=== PATIENT | male | born 1980 | race African-American/Black ===

== ENCOUNTER 2017-03-25 10:59 | Emergency (ER) | payer SELFPAY ==
[2017-03-25] MEDS ORDERED: Acetaminophen 325 MG TAB ONE (12:07)
[2017-03-25 12:23] LABS: #Basophils 0.1 thou/uL (0.0-0.2); #Lymphocytes 1.2 thou/uL (1.20-3.40); #Monocytes 1.1 thou/uL (0.11-0.59); #Neutrophils 9.6 thou/uL (1.40-6.50); %Basophils 0.8 % (0.0-1.0); %Lymphocytes 9.9 % (21.0-51.0); %Monocytes 8.8 % (0.0-10.0); Hematocrit 44.5 % (42.0-52.0); Mean Platelet Volume 8.9 fL (7.4-10.4); Red Blood Cell (RBC) Count 4.94 mill/uL (4.70-6.10)
--- NOTE | 2017-03-25 12:46 | RAD ---
2 VIEW CHEST: Date: 03/25/17 HISTORY: Cough. Sore throat. COMPARISON: 02/24/12. FINDINGS: The lung londono are clear. No infiltrate seen. Heart and mediastinum unremarkable. IMPRESSION: No acute findings. POS: [facility]
== END 2017-03-25 14:43 | disposition home or self-care (01) ==
LOC: SCSER 10:59
DX: J20.9 Acute bronchitis, unspecified (principal); F17.210 Nicotine dependence, cigarettes, uncomplicated
CPT/HCPCS: 36415; 71020; 85025

== ENCOUNTER 2017-10-23 22:48 | Emergency (ER) | payer SELFPAY | END 2017-10-24 00:09 | disposition home or self-care (01) | LOC: SCSER 22:48 | DX: A60.01 Herpesviral infection of penis (principal); Z71.6 Tobacco abuse counseling; F17.200 Nicotine dependence, unspecified, uncomplicated | CPT/HCPCS: 99406 ==

== ENCOUNTER 2018-07-11 08:25 | Emergency (ER) | payer SELFPAY ==
[2018-07-11] MEDS ORDERED: Fluorescein Opthalmic Strip ONE (08:35)
[2018-07-11] MEDS ORDERED: Adacel (T-DAP) 0.5 ML SYRINGE ONE (08:45)
== END 2018-07-11 09:03 | disposition home or self-care (01) ==
LOC: SCSER 08:25
DX: S05.02XA Injury of conjunctiva and corneal abrasion without foreign body, left eye, initial encounter (principal); W22.09XA Striking against other stationary object, initial encounter
CPT/HCPCS: 90471; 90715

== ENCOUNTER 2021-12-25 01:32 | Emergency (ER) | payer OTHER, SELFPAY ==
[2021-12-25] MEDS ORDERED: Morphine 4 MG/ML VIAL ONE (02:05)
[2021-12-25] MEDS ORDERED: Ondansetron PF 4 MG/2 ML Vial ONE (02:06)
[2021-12-25] MEDS ORDERED: Bacitracin 1 PK ONE (02:06)
[2021-12-25] MEDS ORDERED: Ketorolac Tromethamine 30 MG/ML VIAL ONE (02:06)
[2021-12-25] MEDS ORDERED: Lidocaine 1% MPF 2 ML VIAL ONE (02:38)
== END 2021-12-25 06:30 | disposition home or self-care (01) ==
LOC: ERS 01:32
DX: S02.2XXA Fracture of nasal bones, initial encounter for closed fracture (principal); S01.81XA Laceration without foreign body of other part of head, initial encounter; S50.02XA Contusion of left elbow, initial encounter; S05.12XA Contusion of eyeball and orbital tissues, left eye, initial encounter; S70.12XA Contusion of left thigh, initial encounter; S46.992A Other injury of unspecified muscle, fascia and tendon at shoulder and upper arm level, left arm, initial encounter; S80.812A Abrasion, left lower leg, initial encounter; V27.4XXA Motorcycle driver injured in collision with fixed or stationary object in traffic accident, initial encounter
CPT/HCPCS: 12011; 29105; 70450; 70486; 71045; 96374; 96375; J1885; J2270; J2405

== ENCOUNTER 2022-03-03 20:44 | Emergency (ER) | payer SELFPAY ==
[2022-03-04 00:34] LABS: #Eosinphils 0.1 thou/uL (0.0-0.7); #Lymphocytes 1.5 thou/uL (1.20-3.40); #Monocytes 0.8 thou/uL (0.11-0.59); #Neutrophils 6.6 thou/uL (1.40-6.50); %Basophils 0.3 % (0.0-1.0); %Eosinophils 0.6 % (0.0-10.0); %Lymphocytes 16.3 % (21.0-51.0); %Neutrophils 73.8 % (42.0-75.0); Hemoglobin 15.1 g/dL (14.0-18.0); Mean Corpuscular HGB CONC 32.2 g/dL (32.0-36.0); Mean Corpuscular Hemoglobin 29.7 pg (27.0-31.0); Mean Corpuscular Volume 92.2 fL (78.0-98.0); Mean Platelet Volume 9.3 fL (7.4-10.4); Platelet Count 184 thou/uL (130-400); RBC Distribution Width 11.5 % (11.5-14.5); Red Blood Cell (RBC) Count 5.07 mill/uL (4.70-6.10)
[2022-03-04 00:59] LABS: ALT (SGPT) 15 U/L (8-55); AST (SGOT) 15 U/L (5-34); Albumin 4.4 g/dL (3.5-5.0); Alkaline Phosphatase 58 U/L (40-110); Anion Gap 13 mmol/L (10-20); BUN (Urea Nitrogen) 13 mg/dL (8.9-20.6); Bilirubin, Total 0.5 mg/dL (0.2-1.2); Calc. Creatinine Clearance 0 mL/min (70-130); Calcium 9.5 mg/dL (7.8-10.44); Carbon Dioxide 25 mmol/L (22-29); Chloride 103 mmol/L (98-107); Estimated GFR 86; Globulin 3.6 g/dL (2.4-3.5); Glucose 119 mg/dL (70-105); Potassium 4.3 mmol/L (3.5-5.1); Sodium 137 mmol/L (136-145)
[2022-03-04] MEDS ORDERED: Clindamycin/D5W 600 mg/50 ml Premix Bag ONE (02:00)
[2022-03-04] MEDS ORDERED: Lidocaine 1% PF 5 ML VIAL ONE (02:01)
[2022-03-04] MEDS ORDERED: Bacitracin 1 PK ONE (02:31)
[2022-03-04] MEDS ORDERED: Ketorolac Tromethamine 30 MG/ML VIAL ONE (02:40)
[2022-03-04] MEDS ORDERED: Iopamidol 370 76% 100 ML VIAL ONE (09:50)
== END 2022-03-04 03:19 | disposition home or self-care (01) ==
LOC: ERS 20:44
DX: L03.211 Cellulitis of face (principal); L02.01 Cutaneous abscess of face
CPT/HCPCS: 70487; 80053; 85025; 96365; 96375; J1885; J3490; Q9967

== ENCOUNTER 2023-11-08 03:54 | Observation (INO) | payer SELFPAY ==
[2023-11-08] MEDS ORDERED: Ketorolac Tromethamine 30 MG (1 mL) VIAL ONE (04:52)
[2023-11-08] MEDS ORDERED: Sodium Chloride 0.9% 100 ML ONE (04:52)
[2023-11-08] MEDS ORDERED: Cefepime 2 GM VIAL ONE (04:52)
[2023-11-08 05:05] LABS: #Basophils Less than 0.03 10x3/uL (0.0-0.2); #Eosinphils Less than 0.03 10x3/uL (0.0-0.7); %Basophils 0.3 % (0.0-1.0); %Eosinophils 0.1 % (0.0-10.0); %Lymphocytes 24.5 % (21.0-51.0); %Monocytes 12.7 % (0.0-10.0); %Neutrophils 62.1 % (42.0-75.0); Hematocrit 44.6 % (42.0-52.0); Hemoglobin 14.7 g/dL (14.0-18.0); Mean Corpuscular Hemoglobin 29.3 pg (27.0-31.0); Mean Corpuscular Volume 88.8 fL (78.0-98.0); Mean Platelet Volume 11.3 fL (7.4-10.4); Platelet Count 224 10x3/uL (130-400); RBC Distribution Width 12.4 % (11.5-14.5); Red Blood Cell (RBC) Count 5.02 mill/uL (4.70-6.10)
[2023-11-08 05:30] LABS: CRP,High Sensitivity (Inhouse) 1.64 mg/dL (< or = 0.5)
[2023-11-08 05:31] LABS: ALT (SGPT) 20 U/L (8-55); AST (SGOT) 18 U/L (5-34); Albumin 4.3 g/dL (3.5-5.0); Alkaline Phosphatase 46 U/L (40-110); Anion Gap 16 mmol/L (10-20); BUN (Urea Nitrogen) 19 mg/dL (8.9-20.6); Bilirubin, Total 1.2 mg/dL (0.2-1.2); Calc. Creatinine Clearance 0 mL/min (70-130); Calcium 9.3 mg/dL (7.8-10.44); Carbon Dioxide 23 mmol/L (22-29); Chloride 105 mmol/L (98-107); Estimated GFR 95; Globulin 3.5 g/dL (2.4-3.5); Glucose 79 mg/dL (70-105); Potassium 4.2 mmol/L (3.5-5.1); Protein, Total 7.8 g/dL (6.0-8.3); Sodium 140 mmol/L (136-145)
[2023-11-08] MEDS ORDERED: HYDROcodone/Acetaminophen 5/325 mg Tablet PO PRN (07:42)
[2023-11-08] MEDS ORDERED: Acetaminophen 325 MG TAB PO PRN (07:42)
[2023-11-08] MEDS ORDERED: Ondansetron ODT 4 MG TAB PO PRN (07:42)
[2023-11-08] MEDS: Vancomycin (BATCH) 1.75 GM in Premix 1 BAG IVPB SCH (09:08)
[2023-11-08] MEDS: Heparin 5,000 UNITS/ML VIAL SC SCH (09:09)
[2023-11-08 09:28] VITALS: BMI 23.6
[2023-11-08 10:49] LABS: Uric Acid 4.1 mg/dL (3.5-7.2)
[2023-11-08 11:01] LABS: CRP,High Sensitivity (Inhouse) 1.69 mg/dL (< or = 0.5)
[2023-11-08] MEDS: Ketorolac Tromethamine 30 MG (1 mL) VIAL IVP SCH (14:42)
[2023-11-09 05:48] LABS: #Basophils Less than 0.03 10x3/uL (0.0-0.2); %Basophils 0.2 % (0.0-1.0); %Eosinophils 0.7 % (0.0-10.0); %Monocytes 12.6 % (0.0-10.0); %Neutrophils 48.3 % (42.0-75.0); Hematocrit 38.9 % (42.0-52.0); Hemoglobin 12.7 g/dL (14.0-18.0); Mean Corpuscular HGB CONC 32.6 g/dL (32.0-36.0); Mean Corpuscular Hemoglobin 29.3 pg (27.0-31.0); Mean Corpuscular Volume 89.8 fL (78.0-98.0); Mean Platelet Volume 11.7 fL (7.4-10.4); Platelet Count 209 10x3/uL (130-400); Red Blood Cell (RBC) Count 4.33 mill/uL (4.70-6.10)
[2023-11-09 06:19] LABS: Anion Gap 8 mmol/L (10-20); BUN (Urea Nitrogen) 22 mg/dL (8.9-20.6); Calc. Creatinine Clearance 104 mL/min (70-130); Calcium 8.3 mg/dL (7.8-10.44); Carbon Dioxide 25 mmol/L (22-29); Chloride 108 mmol/L (98-107); Estimated GFR 102; Glucose 94 mg/dL (70-105); Potassium 4.2 mmol/L (3.5-5.1); Sodium 137 mmol/L (136-145)
[2023-11-09 08:41] VITALS: BP 113/66; TEMP 97.9
== END 2023-11-09 14:41 | disposition home or self-care (01) ==
LOC: ERS 03:54 → SUATTDRO 03:54 → T4-B 08:37
PROVIDERS: ADMIT Student in an Organized Health Care Education/Training Program; ATTEND Internal Medicine
DX: M25.571 Pain in right ankle and joints of right foot (principal); F12.90 Cannabis use, unspecified, uncomplicated; Z72.0 Tobacco use
CPT/HCPCS: 36415; 80048; 80053; 84550; 85025; 86141; 87040; 96365; 96366; 96367; 96372; 96375; 96376; G0378; J0692; J1644; J1885; J3370; J3490